=== PATIENT | male | born 1950 | race Caucasian/White ===

== ENCOUNTER 2021-05-30 11:22 | Outpatient (CLI) | payer MEDICARE ==
[2021-05-30] MEDS ORDERED: TAMS-11 PO (12:04)
[2021-05-30] MEDS ORDERED: AMLO-150 PO (12:04)
[2021-05-30] MEDS ORDERED: OMEP-110 PO (12:04)
[2021-05-30] MEDS ORDERED: FLUT16SP24 NAS (12:04)
[2021-05-30] MEDS ORDERED: RAMI10CA59 PO (12:04)
[2021-05-30] MEDS ORDERED: ASPI81TA45 PO (12:04)
[2021-05-30] MEDS ORDERED: L.AC1CAP6 PO (12:04)
[2021-05-30] MEDS ORDERED: LEVO100T5 PO (12:04)
[2021-05-30] MEDS ORDERED: ROSU20TA2 PO (12:04)
[2021-05-30] MEDS ORDERED: METF500T17 PO (12:04)
[2021-05-30 12:20] LABS: BASOPHILS % (AUTO) 1 % (0-1); EOSINOPHILS % (AUTO) 2 % (1-7); LYMPHOCYTES % (AUTO) 27 % (22-44); MEAN CORPUSCULAR HEMOGLOBIN 33.4 pg (27.5-34.5); MEAN CORPUSCULAR HGB CONC 34.4 g/dL (33.2-36.2); MEAN PLATELET VOLUME 7.6 fL (7.4-10.4); MONOCYTES % (AUTO) 9 % (2-9); NEUTROPHILS % (AUTO) 62 % (42-75); PLATELET COUNT 189 x10^3/uL (130-400); RED BLOOD COUNT 4.57 x10^6/uL (4.38-5.82); RED CELL DISTRIBUTION WIDTH 11.8 % (9.4-14.8)
[2021-05-30 12:24] LABS: MICROSCOPIC NOT IND
[2021-05-30 12:32] LABS: ALBUMIN 4.2 g/dL (3.4-5.0); ANION GAP 7 mmol/L (5-15); CALCIUM 9.1 mg/dL (8.5-10.1); CHLORIDE 105 mmol/L (98-107); PROTHROMBIN TIME 10.7 Seconds (9.6-11.5)
[2021-05-30 12:36] LABS: ALANINE AMINOTRANSFERASE 29 U/L (12-78); ALKALINE PHOSPHATASE 38 U/L (45-117); BILIRUBIN,TOTAL 0.7 mg/dL (0.2-1.0); CREATININE 0.96 mg/dL (0.7-1.3); TOTAL PROTEIN 7.5 g/dL (6.4-8.2)
== END 2021-05-30 23:59 | disposition home or self-care (01) ==
LOC: STAR 11:22
PROVIDERS: ATTEND Urology
DX: Z01.818 Encounter for other preprocedural examination (principal); C61 Malignant neoplasm of prostate; R00.1 Bradycardia, unspecified
CPT/HCPCS: 36415; 80053; 81003; 83036; 85025; 85610; 85730; 87086; 93005

== ENCOUNTER 2021-06-11 11:44 | Observation (INO) | payer MEDICARE ==
[~2021-06-11] VITALS: Ht 175.3 cm; Wt 83.3 kg
[2021-06-12 13:57] VITALS: BP 134/81
== END 2021-06-12 14:45 | disposition home or self-care (01) ==
LOC: OUT 11:44 → 4NE 12:30 → OUT 06-12 00:20 → INTOOBSV 06-12 00:23 → 4NE 06-12 00:23
PROVIDERS: ADMIT Urology; ATTEND Urology
DX: C61 Malignant neoplasm of prostate (principal); Z20.822 Contact with and (suspected) exposure to COVID-19; N42.89 Other specified disorders of prostate; N40.0 Benign prostatic hyperplasia without lower urinary tract symptoms; I10 Essential (primary) hypertension; E11.9 Type 2 diabetes mellitus without complications; E78.00 Pure hypercholesterolemia, unspecified; E78.5 Hyperlipidemia, unspecified; Z87.442 Personal history of urinary calculi; Z79.899 Other long term (current) drug therapy